=== PATIENT | male | born 1960 | race Hispanic/Latino ===

== ENCOUNTER 2023-06-12 14:22 | Emergency (ER) | payer OTHER ==
[~2023-06-12] VITALS: Ht 167.6 cm; Wt 70.3 kg
[2023-06-12 14:42] VITALS: BP_SYST 125; BP_SYST 144; BP_DIAS 68; BP_DIAS 87; PULSE 71; PULSE 74; RESP 16; TEMP 97.7; O2SAT 98
[2023-06-12 16:29] VITALS: BP 137/81; PULSE 67; RESP 16; TEMP 97.7; O2SAT 99
== END 2023-06-12 16:06 | disposition home or self-care (01) ==
LOC: ER 14:22
DX: M21.611 Bunion of right foot (principal); E11.9 Type 2 diabetes mellitus without complications; I10 Essential (primary) hypertension
CPT/HCPCS: 99283; 73630-LT